=== PATIENT | female | born 1975 | race Caucasian/White ===

== ENCOUNTER 2022-12-29 08:23 | Outpatient (CLI) | payer OTHER, SELFPAY | END 2022-12-29 08:24 | disposition home or self-care (01) | LOC: NFLDREF 12-31 04:30 | PROVIDERS: PCP Physician Assistant Medical; Referring Provider Physician Assistant Medical; Visit Provider Physician Assistant Medical | DX: I10 Essential (primary) hypertension (principal) | CPT/HCPCS: 80053; 80061 ==

== ENCOUNTER 2024-08-01 14:08 | Outpatient (CLI) | payer BC, SELFPAY | END 2024-08-01 14:09 | disposition home or self-care (01) | PROVIDERS: PCP Physician Assistant Medical; Visit Provider Physician Assistant Medical | DX: I10 Essential (primary) hypertension (principal); E03.9 Hypothyroidism, unspecified; E66.9 Obesity, unspecified | CPT/HCPCS: 80053; 80061 ==

== ENCOUNTER 2025-08-19 15:42 | Outpatient (CLI) | payer BC, SELFPAY | END 2025-08-19 15:43 | disposition home or self-care (01) | LOC: NFLDREF 08-27 14:07 | PROVIDERS: PCP Physician Assistant Medical; Referring Provider Physician Assistant Medical; Visit Provider Physician Assistant Medical | DX: I10 Essential (primary) hypertension (principal) | CPT/HCPCS: 80053; 80061 ==